=== PATIENT | female | born 1955 | race Caucasian/White ===

== ENCOUNTER 2018-04-15 11:42 | Emergency (ER) | payer BC ==
--- NOTE | 2018-04-15 12:03 | EDM.PDOC ---
ED HPI GENERAL MEDICAL PROBLEM - General Chief Complaint: Lower Extremity Injury/Pain Stated Complaint: RT LEG PAIN Time Seen by Provider: 04/15/18 11:45 Source of Information: Reports: Patient History Limitations: Reports: No Limitations - History of Present Illness INITIAL COMMENTS - FREE TEXT/NARRATIVE: 63 YO WF presents to ER complaining of right anterior tibia pain last night that has resolved. Pt with remote history of tibia surgery secondary to severely injured leg 10 years ago. Pt states last night she had pain in the anterior aspect of her right lower leg over incision site. Pt reports pain last night was debilitating but resolved. Pt woke this am with soreness to same area prompting ER visit. Pt denies any swelling, denies fever/chills, denies redness , pallor or echymosis to right lower leg. Pt denies any back pain, pain in to buttock or radiating pain. Pt able to ambulate without difficulty. Pt reports she's concerned due to history of hardware in leg. Onset Date: 04/14/18 Duration: Day(s): (1) Location: Reports: Lower Extremity, Right Quality: Reports: Ache Severity: Mild Improves with: Reports: Rest Worsens with: Reports: Movement Associated Symptoms: Reports: No Other Symptoms. Denies: Fever/Chills, Shortness of Breath, Weakness - Related Data Allergies Allergy/AdvReac Type Severity Reaction Status Date / Time celecoxib [From Celebrex] Allergy Rash Verified 07/24/15 15:21 Penicillins Allergy Swollen Verified 07/24/15 15:21 Tongue Home Meds: Home Meds Simvastatin 20 mg PO BEDTIME 06/01/15 [History] Metoprolol Succinate [Toprol XL] 50 mg PO DAILY 07/24/15 [History] Past Medical History - Past Health History Medical/Surgical History: Denies Medical/Surgical History Other Cardiovascular History: SVT - Past Surgical History Other Neurological Surgeries/Procedures: ruptured disc Other Musculoskeletal Surgeries/Procedures:: partial knee replacement - left. hip and back surgery Review of Systems - Review of Systems Review Of Systems: See Below Constitutional: Reports: No Symptoms Eyes: Reports: No Symptoms Ears: Reports: No Symptoms Nose: Reports: No Symptoms Mouth/Throat: Reports: No Symptoms Respiratory: Reports: No Symptoms Cardiovascular: Reports: No Symptoms GI/Abdominal: Reports: No Symptoms Genitourinary: Reports: No Symptoms Musculoskeletal: Reports: Leg Pain (mild right anterior lower leg pain on palpation) Skin: Reports: No Symptoms Neurological: Reports: No Symptoms Psychiatric: Reports: No Symptoms ED EXAM, GENERAL - Physical Exam Exam: See Below Exam Limited By: No Limitations General Appearance: Alert, WD/WN, No Apparent Distress Eye Exam: Bilateral Eye: EOMI, PERRL Head: Atraumatic, Normocephalic Neck: Normal Inspection, Supple, Non-Tender, Full Range of Motion Respiratory/Chest: No Respiratory Distress, Lungs Clear, Normal Breath Sounds, No Accessory Muscle Use, Chest Non-Tender Cardiovascular: Normal Peripheral Pulses, Regular Rate, Rhythm, No Edema, No Gallop, No JVD, No Murmur, No Rub GI/Abdominal: Normal Bowel Sounds, Soft, Non-Tender, No Organomegaly, No Distention, No Abnormal Bruit, No Mass Back Exam: Normal Inspection, Full Range of Motion, NT Extremities: Leg Pain (soft tissue tenderness over anterior tibia without swelling or erythema) Neurological: Alert, Oriented, CN II-XII Intact, Normal Cognition, Normal Gait, Normal Reflexes, No Motor/Sensory Deficits Psychiatric: Normal Affect, Normal Mood Course - Orders/Labs/Meds Orders: Active Orders 24 hr Category Date Time Status Tibia Fibula Rt [CR] Stat Exams 04/15/18 11:57 Ordered - Radiology Interpretation Free Text/Narrative:: right Tib/Fib- NAD Departure - Departure Time of Disposition: 12:40 Disposition: Home, Self-Care 01 Condition: Good Clinical Impression: Leg pain, anterior Qualifiers: Laterality: right Qualified Code(s): M79.604 - Pain in right leg - Discharge Information Instructions: [facility] Referrals: Georgiana Diggs MD [Primary Care Provider] - Forms: ED Department Discharge - My Orders Last 24 Hours: My Active Orders 04/15/18 11:57 Tibia Fibula Rt [CR] Stat - Assessment/Plan Last 24 Hours: My Active Orders 04/15/18 11:57 Tibia Fibula Rt [CR] Stat Assessment:: 1. right anterior tibia pain- soft tissue Plan: 1. rest/ice/stretching 2. motrin 600mg PO Q6 PRN pain 3. follow up with PCP for further evaluation and treatment 4. return to ER for worsening symptoms
== END 2018-04-15 12:55 | disposition home or self-care (01) ==
LOC: KA.ED 11:42
DX: M79.604 Pain in right leg (principal); Z88.1 Allergy status to other antibiotic agents; Z88.0 Allergy status to penicillin; Z79.899 Other long term (current) drug therapy
CPT/HCPCS: 73590-RT; 99283

== ENCOUNTER 2022-06-15 12:01 | Emergency (ER) | payer MEDICARE, BC ==
[2022-06-15] MEDS ORDERED: Acetaminophen/HYDROcodone 325-10 MG Tab PO ONE (12:08)
[2022-06-15 12:13] VITALS: BP 88/58; PULSE 58
== END 2022-06-15 16:10 | disposition home or self-care (01) ==
LOC: KA.ED 12:01
DX: S82.64XA Nondisplaced fracture of lateral malleolus of right fibula, initial encounter for closed fracture (principal); S52.531A Colles' fracture of right radius, initial encounter for closed fracture; Z88.1 Allergy status to other antibiotic agents; Z88.0 Allergy status to penicillin; Z88.2 Allergy status to sulfonamides; Z79.899 Other long term (current) drug therapy; Z86.16 Personal history of COVID-19; X58.XXXA Exposure to other specified factors, initial encounter
CPT/HCPCS: 29125; 73100-RT; 73610-RT; 99283; 99283-25; A9270-GY

== ENCOUNTER 2024-04-08 10:46 | Emergency (ER) | payer MEDICARE, BC ==
[2024-04-08] MEDS: Sodium Chloride 0.9% 1,000 ML IV ONE (11:08)
[2024-04-08 11:16] LABS: BASOPHILS ABSOLUTE AUTO 0.06 10^3/uL (0.00-0.10); BASOPHILS PERCENT AUTO 1.1 % (0.0-1.0); EOSINOPHILS PERCENT AUTO 1.8 % (1.0-3.0); HEMATOCRIT 35.4 % (37.0-47.0); HEMOGLOBIN 11.7 g/dL (12.0-16.0); IMMATURE GRAN ABSOLUTE AUTO 0.01 10^3/uL (0.00-0.50); IMMATURE GRAN PERCENT AUTO 0.2 % (0.0-5.0); LYMPHOCYTES ABSOLUTE AUTO 1.94 10^3/uL (1.00-4.00); LYMPHOCYTES PERCENT AUTO 34.2 % (20.0-40.0); MEAN CORPUSCULAR HEMOGLOBIN 29.3 pg (27.0-31.0); MEAN CORPUSCULAR HGB CONC 33.1 g/dL (32.0-36.0); MEAN CORPUSCULAR VOLUME 88.5 fL (82.0-92.0); MONOCYTES ABSOLUTE AUTO 0.44 10^3/uL (0.10-0.80); MONOCYTES PERCENT AUTO 7.7 % (2.0-8.0); NEUTROPHILS ABSOLUTE AUTO 3.13 10^3/uL (2.50-7.00); PLATELET COUNT,PLT 230 10^3/uL (150-400); RED CELL DISTRIBUTION WIDTH 12.6 % (11.5-14.5); WHITE BLOOD CELL COUNT,WBC 5.68 10^3/uL (5.00-10.00)
[2024-04-08 11:34] LABS: ALBUMIN 3.09 g/dL (3.40-5.00); ANION GAP 13.2 mmol/L (5-15); BILIRUBIN TOTAL 0.6 mg/dL (0.2-1.0); CALCIUM 8.5 mg/dL (8.7-10.3); CARBON DIOXIDE,CO2 25.1 mmol/L (21.0-32.0); CREATININE 0.69 mg/dL (0.51-1.17); EST CRCL DRUG DOSING (CG) 73.05 mL/min; POTASSIUM,K 3.3 mmol/L (3.5-5.1); PROTEIN TOTAL,TP 6.4 g/dL (6.4-8.2)
[2024-04-08] MEDS: Sodium Chloride 0.9% 1,000 ML ONE (11:52)
[2024-04-08 13:21] VITALS: BP 115/79; PULSE 58
== END 2024-04-08 12:59 | disposition home or self-care (01) ==
LOC: KA.ED 10:46
DX: I47.10 Supraventricular tachycardia, unspecified (principal); R42 Dizziness and giddiness; Z88.8 Allergy status to other drugs, medicaments and biological substances; Z88.1 Allergy status to other antibiotic agents; Z88.0 Allergy status to penicillin; Z88.2 Allergy status to sulfonamides; Z86.16 Personal history of COVID-19
CPT/HCPCS: 36415; 80053; 84484; 85025; 93005; 93010; 96360; 99284; 99285-25; J7030